=== PATIENT | female | born 1975 | race Caucasian/White ===

== ENCOUNTER 2016-07-17 22:00 | Emergency (ER) | payer MEDICAID ==
--- NOTE | 2016-07-17 22:02 | EDPHY ---
H & P Time Seen by Provider: 07/17/16 22:01 HPI/ROS: CHIEF COMPLAINT: Acute methamphetamine use HISTORY OF PRESENT ILLNESS: 41-year-old female arrives via ambulance after she was found by police acting rationally, noted that she had been using methamphetamine today. History of fibromyalgia, rheumatoid arthritis, chronic opiate dependence Denies suicidal homicidal ideation. PRIMARY CARE PROVIDER: REVIEW OF SYSTEMS: A ten point review of systems was performed and is negative with the exception of the items mentioned in the HPI PAST MEDICAL & SURGICAL HISTORY: Fibromyalgia. Rheumatoid arthritis. SOCIAL HISTORY: Positive methamphetamine use tonight PHYSICAL EXAM (Prior to examination, patient consented to physical exam, hands were washed and my usual and customary physical exam procedures followed) 1) GENERAL: Well-developed, well-nourished, alert and oriented. She appears anxious, she is agitated, she has difficulty sitting still . 2) HEAD: Normocephalic, atraumatic 3) HEENT: Pupils equal, round, reactive to light bilaterally. Sclera anicteric. 4) NECK: Full range of motion, no meningeal signs. 5) LUNGS: Clear auscultation bilaterally, no wheezes, no rhonchi, no retractions. 6) HEART: Regular rate and rhythm, no murmur, no heave, no gallop. 7) ABDOMEN: No guarding, no rebound, no focal tenderness, 8) MUSCULOSKELETAL: No peripheral edema or discoloration. 9) BACK: No CVA tenderness. 10) SKIN: No rash, no petechiae. 11) Psychiatric: Patient is oriented X 3, there is no agitation. DIFFERENTIAL DIAGNOSIS: no particular order including but not limited to acute methamphetamine abuse, acute psychosis, acute exacerbation of chronic pain Smoking Status: Light smoker Constitutional: Initial Vital Signs Temperature (C) 36.6 C 07/17/16 22:08 Heart Rate 101 H 07/17/16 22:08 Respiratory Rate 24 H 07/17/16 22:08 Blood Pressure 112/82 H 07/17/16 22:08 O2 Sat (%) 97 07/17/16 22:08 O2 Delivery Mode Room Air Allergies/Adverse Reactions: BEE STING Allergy (Severe, Uncoded 03/03/15 21:33) Anaphylaxis HAYFEVER, Allergy (Mild, Uncoded 03/03/15 21:33) Other-Enter Comments Home Medications: Medication Instructions Recorded DULoxetine [Cymbalta] 60 mg PO DAILY 03/03/15 Hydrocodone/Acetaminophen 1 each PO Q4-6PRN PRN #20 tablet 03/03/15 [Hydrocodon-Acetaminophen 5-325] Ibuprofen [Motrin (*)] 800 mg PO Q6-8PRN #30 tab 03/03/15 Meloxicam 7.5 mg PO DAILY 03/03/15 Norgestimate-Ethinyl Estradiol 1 each PO DAILY 03/03/15 [Ortho Tri-Cyclen Lo Tablet] Pregabalin [Lyrica] 150 mg PO BID 03/03/15 hydrOXYzine HCL [Vistaril] 50 mg PO 03/03/15 traMADol [Ultram] 50 mg PO PRN 03/03/15 MDM/Departure - MDM Medications Given: Discontinued Medications Lorazepam (Ativan Injection) 2 mg IVP EDNOW ONE Stop: 07/17/16 22:04 Last Admin: 07/17/16 22:24 Dose: 2 mg ED Course/Re-evaluation: 11:30 p.m.: Re-evaluation she is sleeping. Plan will be have police [facility]. - Depart Disposition: Home, Routine, Self-Care Clinical Impression: Methamphetamine abuse Condition: Good Instructions: Methamphetamine Abuse (ED) Additional Instructions: Please stop taking drugs. Referrals: [facility] [Outside] - 1-2 days without fail
[2016-07-17] MEDS ORDERED: LORazepam 2 MG/ML INJ IVP ONE (22:03)
[2016-07-18 01:39] VITALS: RESP 18
[2016-07-18 01:43] VITALS: BP 121/82; PULSE 88; TEMP 98.1; O2SAT 94
== END 2016-07-18 01:59 | disposition home or self-care (01) ==
LOC: EDUNIT#
DX: F15.10 Other stimulant abuse, uncomplicated (principal); F17.200 Nicotine dependence, unspecified, uncomplicated
CPT/HCPCS: 96374

== ENCOUNTER 2016-10-16 10:19 | Emergency (ER) | payer MEDICAID ==
[~2016-10-16 10:19] MED LIST: CEPHALEXIN 500 MG CAP PO SCH; SULFAMETHOX/TMP 800/160 MG 1 TAB PO SCH
[2016-10-16 10:39] VITALS: BP 121/97; PULSE 75; RESP 17; TEMP 98.4; O2SAT 97
[2016-10-16] MEDS ORDERED: SULFAMETHOX/TMP 800/160 MG 1 TAB PO ONE (11:45)
[2016-10-16] MEDS ORDERED: CEPHALEXIN 500 MG CAP PO ONE (11:45)
--- NOTE | 2016-10-16 11:45 | EDPHY ---
H & P Stated Complaint: infected lesion l face x 1 week HPI/ROS: CHIEF COMPLAINT: possible facial infection HISTORY OF PRESENT ILLNESS: Patient complains of 2-3 days history of facial infections. These are areas of excoriation that she has scratched during methamphetamine use. He admits to this and says that these have been steadily worsening since onset. Moderately painful on the right mandibular location. There are several locations on her face of varying degrees of severity are mild- to-moderate. No headache. No eye pain. No redness around the eyes. No nausea or vomiting. No neck pain. No fever or chills. No other associated complaints or modifying factors. REVIEW OF SYSTEMS: Ten systems reviewed and are negative unless otherwise noted in the HPI EXAMINATION General Appearance: Alert, no distress HEENT: Head is normocephalic and atraumatic. No periorbital erythema or cellulitis. There are several areas of excoriation on the face as described below. Cardiovascular: Pulses normal throughout. Brisk cap refill Neurological: A&O, sensory symmetric, strength symmetric Skin: Warm and dry. Multiple areas of excoriation on the face. These are minimally erythematous with exception of the right mandibular lesion. There is mild fluctuance to it. Minimal surrounding erythema. No periorbital cellulitis. No evidence of orbital cellulitis. Extremities: Nontender, no pedal edema Psychiatric: Mood and affect normal DIFFERENTIAL DIAGNOSES: Including but not limited to excoriations, abscess, folliculitis, facial cellulitis MDM: 11:44 a.m. multiple excoriations about the face with 2 areas of likely infection with small abscess in 1 area. I have aspirated the area of fluctuance with minimal return of purulence. Place the patient on Bactrim and Keflex. She will be instructed to follow up at [facility] or to return here for worsening of her symptoms. She is comfortable with this plan. She will be discharged home in stable condition with outpatient follow-up instructions for her methamphetamine abuse. PROCEDURE: Incision and Drainage Consent: Verbal Location: right mandible Length: 1 cm Complexity: simple Anesthesia: local. 1% lidocaine plain, 3 mL Procedure description: area of fluctuance was prepped with chlorhexidine. Anesthesia infused. 18 gauge needle was used to aspirate a small amount of purulence. Tolerated well. No bleeding postprocedure. Expressed: Scant purulence Wound care: routine as discussed Follow-up: 2 days for wound recheck here or at [facility] ED Precautions: Worsening pain. Erythema, edema, cyanosis, pallor, paresthesia or anesthesia. SUPERVISION: This patient was independently evaluated without direct examination by the attending physician. Case was discussed with attending physician. Source: Patient Exam Limitations: No limitations - Personal History LMP (Females 10-55): 1-7 Days Ago Current Tetanus/Diphtheria Vaccine: Yes Tetanus Vaccine Date: within 10 years - Medical/Surgical History Hx Asthma: No Hx Chronic Respiratory Disease: No Hx Diabetes: No Hx Cardiac Disease: No Hx Renal Disease: No Hx Cirrhosis: No Hx Alcoholism: Yes Hx HIV/AIDS: No Hx Splenectomy or Spleen Trauma: No Other PMH: FIBROMYALGIA, ARTHRITIS, DEPRESSION, PTSD, Meth abuse - Social History Smoking Status: Light smoker Constitutional: Initial Vital Signs Temperature (C) 98.4 F 10/16/16 10:36 Heart Rate 75 10/16/16 10:36 Respiratory Rate 17 10/16/16 10:36 Blood Pressure 121/97 H 10/16/16 10:36 O2 Sat (%) 97 10/16/16 10:36 O2 Delivery Mode Room Air Allergies/Adverse Reactions: BEE STING Allergy (Severe, Uncoded 10/16/16 10:35) Anaphylaxis HAYFEVER, Allergy (Mild, Uncoded 10/16/16 10:35) Other-Enter Comments Home Medications: Medication Instructions Recorded DULoxetine [Cymbalta] 60 mg PO DAILY 03/03/15 Hydrocodone/Acetaminophen 1 each PO Q4-6PRN PRN #20 tablet 03/03/15 [Hydrocodon-Acetaminophen 5-325] Ibuprofen [Motrin (*)] 800 mg PO Q6-8PRN #30 tab 03/03/15 Meloxicam 7.5 mg PO DAILY 03/03/15 Norgestimate-Ethinyl Estradiol 1 each PO DAILY 03/03/15 [Ortho Tri-Cyclen Lo Tablet] Pregabalin [Lyrica] 150 mg PO BID 03/03/15 hydrOXYzine HCL [Vistaril] 50 mg PO 03/03/15 traMADol [Ultram] 50 mg PO PRN 03/03/15 Cephalexin [Keflex (*)] 500 mg PO TID #30 cap 10/16/16 Sulfamethox/Tmp 800/160 mg 2 tab PO BID 10 Days 10/16/16 [Bactrim Ds] Medical Decision Making - Data Points Medications Given: Discontinued Medications Cephalexin HCl (Keflex) 500 mg PO EDNOW ONE PRN Reason: Protocol Stop: 10/16/16 11:46 Last Admin: 10/16/16 11:56 Dose: 500 mg Trimethoprim/Sulfamethoxazole (Bactrim Ds) 2 ea PO EDNOW ONE PRN Reason: Protocol Stop: 10/16/16 11:46 Last Admin: 10/16/16 11:56 Dose: 2 ea Departure - Departure Disposition: Home, Routine, Self-Care Clinical Impression: Facial abscess, Excoriation Condition: Good Instructions: Methamphetamine Abuse (ED), Abscess (ED) Additional Instructions: Take the medications as discussed. Follow up with [facility] ([phone] ). Return here for worsening symptoms or redness about the face. Please follow-up with [facility]) at [phone] for help with your addiction. Referrals: [facility] [Other] - As per Instructions Prescriptions: Cephalexin [Keflex (*)] 500 mg PO TID #30 cap Sulfamethox/Tmp 800/160 mg [Bactrim Ds] 2 tab PO BID 10 Days
== END 2016-10-16 12:41 | disposition home or self-care (01) ==
PROC: 0H91XZZ Drainage of Face Skin, External Approach (ICD-10-PCS; principal; 2016-10-16)
DX: L98.1 Factitial dermatitis (principal); L02.01 Cutaneous abscess of face; F17.200 Nicotine dependence, unspecified, uncomplicated

== ENCOUNTER 2017-06-06 21:12 | Emergency (ER) | payer MEDICAID ==
--- NOTE | 2017-06-06 21:19 | EDPHY ---
H & P Source: Patient Exam Limitations: No limitations - Personal History Tetanus Vaccine Date: within 10 years - Medical/Surgical History Hx Asthma: No Hx Chronic Respiratory Disease: No Hx Diabetes: No Hx Cardiac Disease: No Hx Renal Disease: No Hx Cirrhosis: No Hx Alcoholism: Yes Hx HIV/AIDS: No Hx Splenectomy or Spleen Trauma: No Other PMH: FIBROMYALGIA, ARTHRITIS, DEPRESSION, PTSD, Meth abuse - Social History Smoking Status: Light smoker Time Seen by Provider: 06/06/17 21:19 HPI/ROS: HPI: This is a 42-year-old female who presents with Chief Complaint: M1 hold Location: psych Quality: M1 hold Duration: since 1949 Signs and Symptoms: No suicidal ideation, no homicidal ideation,+ paranoid, + hearing voices, + visual hallucinations, + insomnia x3 days Timing: Acute on chronic Severity: Moderate to severe Context: Patient's mother called 911 to report patient was hearing voices and talking to people that were not present. Patient's mother reports that the patient is a meth user and also has been diagnosed with schizophrenia. Patient mother believes that she is a danger to herself and is unable to care for herself. Patient reports that she was incarcerated for 2 months and released in February. Since that time, she has been homeless living at shelters down [place]. She admits to using meth for the last 3 days via intravenous drug use. Last use was yesterday afternoon/evening. She has been staying at her mother' s house for the last several weeks due to the cold temperatures. She admitted to her mother today that she was using meth. Her mother called 911 placed M1 hold on her. Patient denies any prior diagnosis of schizophrenia. She does admit to a diagnosis depression, anxiety, PTSD, fibromyalgia. She reports that she has not had her Lyrica in 2 days. History of bilateral tubal ligation. Modifying Factors: None Comment: ROS: see HPI Constitutional: No fever, no chills, no weight loss Eyes: No blurred vision Respiratory: No shortness of breath, no cough Cardiovascular: No chest pain Gastrointestinal: No nausea, no vomiting, no diarrhea Genitourinary: No dysuria Extremities: No myalgias Neurologic: No weakness, no numbness Skin: No rashes Hematologic: No bruising, no bleeding MEDICAL/SURGICAL/SOCIAL HISTORY: Medical history: Fibromyalgia. PTSD Surgical history: Breast surgery, bilateral tubal ligation Social history: Homeless CONSTITUTIONAL: Untidy, irritable, adult white female, awake and alert, no obvious distress HEENT: Atraumatic and normocephalic, PERRL, EOMI. Tympanic membranes clear. Oropharynx clear, poor dentition, no exudate and moist pink mucosa. Airway patent. No lymphadenopathy. No meningismus. Cardiovascular: Normal S1/S2, regular rate, regular rhythm, without murmur rub or gallop. PULMONARY/CHEST: Symmetrical and nontender. Clear to auscultation bilaterally. Good air movement. No accessory muscle usage. ABDOMEN: Soft, nondistended, nontender, no rebound, no guarding, no peritoneal signs, no masses or organomegaly. No CVAT. EXTREMITIES: 2/2 pulses, strength 5/5, no deformities, no clubbing, no cyanosis or edema. NEUROLOGICAL: no focal neuro deficits. GCS 15. SKIN: Warm and dry, scarring and different nodules in various stages noted on her face, no erythema. no rash. Good capillary refill. PSYCH: Poor eye contact, + flight of ideas, tangential disorganized thought process, poor insight and judgment, + auditory and visual command hallucinations , no suicidal ideation with a plan, now homicidal ideation, paranoid (Armando,Terra) Constitutional: Initial Vital Signs Temperature (C) 36.8 C 06/06/17 21:27 Heart Rate 78 06/06/17 21:27 Respiratory Rate 16 06/06/17 21:27 Blood Pressure 143/74 H 06/06/17 21:27 O2 Sat (%) 94 06/06/17 21:27 O2 Delivery Mode Room Air Allergies/Adverse Reactions: BEE STING Allergy (Severe, Uncoded 06/06/17 21:32) Anaphylaxis HAYFEVER, Allergy (Mild, Uncoded 06/06/17 21:32) Other-Enter Comments Home Medications: Medication Instructions Recorded DULoxetine [Cymbalta] 60 mg PO DAILY 03/03/15 Hydrocodone/Acetaminophen 1 each PO Q4-6PRN PRN #20 tablet 03/03/15 [Hydrocodon-Acetaminophen 5-325] Ibuprofen [Motrin (*)] 800 mg PO Q6-8PRN #30 tab 03/03/15 Meloxicam 7.5 mg PO DAILY 03/03/15 Norgestimate-Ethinyl Estradiol 1 each PO DAILY 03/03/15 [Ortho Tri-Cyclen Lo Tablet] Pregabalin [Lyrica] 150 mg PO BID 03/03/15 hydrOXYzine HCL [Vistaril] 50 mg PO 03/03/15 traMADol [Ultram] 50 mg PO PRN 03/03/15 Cephalexin [Keflex (*)] 500 mg PO TID #30 cap 10/16/16 Sulfamethox/Tmp 800/160 mg 2 tab PO BID 10 Days tab 10/16/16 [Bactrim Ds] Medical Decision Making ED Course/Re-evaluation: 1950: M1 hold placed by [facility] police. I agree with this. Patient reports that her last methamphetamine use was yesterday but her behavior is very bizarre, manic. She admits to auditory and visual hallucinations. Currently patient is calm and cooperative. No interventions are required at this time. 2210: Labs and UDS reviewed; positive for amphetamines and marijuana. 0005: Nursing requested home medications be ordered. Celebrex, Lyrica, Vistaril, Cymbalta ordered. 0010: End of shift. Signed over to Dr. Harrison. meth clear in AM. Pending mental health evaluation and final disposition. (Karly Roberts) Differential Diagnosis: Differential diagnosis includes but is not limited to intoxication, depression, schizoaffective disorder, suicidal ideation, psychosis, delirium. (Karly Roberts) Other Provider: 00:35 care assumed by me from FERN Roberts pending sober evaluation. 0700 patient signed out to Dr. Ybarra pending sober evaluation. No issues during my care this patient overnight. (Bhavin Harrison) No issues over my shift. At 1325, mental health has completed their evaluation and recommends discharge home. They feel she is low risk, not actively suicidal and have asked me to terminate the M1 hold. (Celio Ybarra) - Data Points Laboratory Results: Laboratory Results 06/06/17 21:24 06/06/17 21:24 Medications Given: Celecoxib (Celebrex) 100 mg PO BID RANDY Stop: 12/04/17 00:14 Last Admin: 06/07/17 09:00 Dose: 100 mg Duloxetine HCl (Cymbalta) 60 mg PO DAILY RANDY Stop: 12/04/17 09:14 Last Admin: 06/07/17 10:15 Dose: 60 mg Pregabalin (Lyrica) 75 mg PO BID RANDY Stop: 12/04/17 00:14 Last Admin: 06/07/17 09:01 Dose: 75 mg Discontinued Medications Duloxetine HCl (Cymbalta) 60 mg PO ONCE ONE Stop: 06/07/17 00:04 Last Admin: 06/07/17 00:29 Dose: Not Given Hydroxyzine HCl (Hydroxyzine Hcl) 50 mg PO ONCE ONE Stop: 06/07/17 00:05 Last Admin: 06/07/17 00:28 Dose: 50 mg Departure - Departure Disposition: Home, Routine, Self-Care Clinical Impression: Methamphetamine use, IVDU (intravenous drug user), Delirium, Hallucinations Condition: Good Instructions: Polysubstance Abuse (ED) Additional Instructions: Follow-up with your mental health provider as directed. Return to the ED for thoughts of self-harm, racing thoughts or other concerns. Referrals: NONE *PRIMARY CARE P,. [Primary Care Provider] - As per Instructions
[2017-06-06 21:44] LABS: % IMMATURE GRANULYOCYTES 0.3 % (0.0-1.1); ABSOLUTE IMMATURE GRANULOCYTES 0.04 10^3/uL (0.00-0.10); ADD DIFF? NO; ADD MORPH? NO; ADD SCAN? NO; ATYPICAL LYMPHOCYTE FLAG 10 (0-99); FRAGMENT RBC FLAG 20 (0-99); HEMATOCRIT 40.4 % (38.0-47.0); HEMOGLOBIN 14.1 g/dL (12.6-16.3); LEFT SHIFT FLG 0 (0-99); LIPEMIA HEMOLYSIS FLAG 90 (0-99); MEAN CELL HEMOGLOBIN 31.9 pg (27.9-34.1); MEAN CELL HEMOGLOBIN CONCENTR. 34.9 g/dL (32.4-36.7); MEAN CELL VOLUME 91.4 fL (81.5-99.8); MEAN PLATELET VOLUME 9.6 fL (8.7-11.7); PLATELET CLUMPS FLAG 0 (0-99); PLATELET COUNT 302 10^3/uL (150-400); RED BLOOD CELL COUNT 4.42 10^6/uL (4.18-5.33); RED CELL DISTRIBUTION WIDTH 13.2 % (11.5-15.2)
[2017-06-06 21:47] LABS: ANION GAP 10 mEq/L (8-16); CALCIUM 9.1 mg/dL (8.5-10.4); CARBON DIOXIDE 26 mEq/l (22-31); CHLORIDE 105 mEq/L (97-110); CREATININE 0.7 mg/dL (0.6-1.0); ETHANOL SERUM 21 mg/dL (0-10); GLOMERULAR FILTRATION RATE > 60; GLUCOSE 92 mg/dL (70-100); POTASSIUM 3.6 mEq/L (3.5-5.2); SALICYLATE < 1.0 mg/dL (2.0-20.0); SODIUM 141 mEq/L (134-144)
[2017-06-07] MEDS ORDERED: DULoxetine 60 MG CAP PO ONE (00:03)
[2017-06-07] MEDS ORDERED: hydrOXYzine HCL 50 MG TAB PO ONE (00:04)
[2017-06-07] MEDS: PREGABALIN 75 MG CAP PO SCH ×2 (00:27→09:01)
[2017-06-07] MEDS ORDERED: DULoxetine 60 MG CAP PO SCH (09:15)
[2017-06-07 14:20] VITALS: BP 113/79; PULSE 84; RESP 18; TEMP 97.9; O2SAT 95
== END 2017-06-07 14:20 | disposition home or self-care (01) ==
DX: F15.90 Other stimulant use, unspecified, uncomplicated (principal); F19.90 Other psychoactive substance use, unspecified, uncomplicated; R41.0 Disorientation, unspecified; R44.0 Auditory hallucinations; R44.1 Visual hallucinations; F17.200 Nicotine dependence, unspecified, uncomplicated
CPT/HCPCS: 80305; G0480

== ENCOUNTER 2017-07-26 15:39 | Emergency (ER) | payer MEDICAID ==
[2017-07-26 16:37] VITALS: TEMP 98.1
--- NOTE | 2017-07-26 18:17 | EDPHY ---
H & P Stated Complaint: MITRA hand swelling Time Seen by Provider: 07/26/17 18:07 HPI/ROS: CHIEF COMPLAINT: Right hand swelling HISTORY OF PRESENT ILLNESS: The patient is a 42 y/o female with chronic pain and active methamphetamine abuse complaining of right hand swelling worsening over the past 2 days. She thinks she was bit by something in her right hand 2 weeks ago and admits to crystal meth injection in her other arm, but adamantly denies shooting any IV drugs into her right arm or hand. She says "for 2 days I ran around outside thinking people were following me" after using meth. She spent the last 2 nights outside because of this and says her hands became very cold because she didn't have gloves on. Today she's had swelling and redness of both hands, mainly the right hand. She denies fever, chills, vomiting, diarrhea, or other acute symptoms. REVIEW OF SYSTEMS: Constitutional: No fever, no chills Eyes: No visual changes ENT: No sore throat Respiratory: No cough, no shortness of breath Cardiac: No chest pain Gastrointestinal: no vomiting, no abdominal pain Genitourinary: no dysuria Skin: see HPI Neurological: No headache, no weakness Psychiatric: depression - Personal History LMP (Females 10-55): Over 28 Days Ago Current Tetanus/Diphtheria Vaccine: Yes Current Tetanus Diphtheria and Acellular Pertussis (TDAP): Yes Tetanus Vaccine Date: within 10 years - Medical/Surgical History Hx Asthma: No Hx Chronic Respiratory Disease: No Hx Diabetes: No Hx Cardiac Disease: No Hx Renal Disease: No Hx Cirrhosis: No Hx Alcoholism: Yes Hx HIV/AIDS: No Hx Splenectomy or Spleen Trauma: No Other PMH: FIBROMYALGIA, ARTHRITIS, DEPRESSION, PTSD, Meth abuse - Social History Smoking Status: Current every day smoker - Physical Exam Exam: General Appearance: Alert, well-apearing Eyes: Pupils equal and round, no conjunctival pallor or injection ENT, Mouth: multiple scabbed over areas on face, Mucous membranes moist Neck: Normal inspection Respiratory: Lungs are clear to auscultation Cardiovascular: Regular rate and rhythm Gastrointestinal: Abdomen is soft and non-tender Neurological: A&O, nonfocal, normal gait Skin: Warm and dry Extremities: Right hand: diffuse mild erythema, warm, not tender, ROM of fingers without pain, no fluctuance or evidence of abscess. Left hand has slight swelling, somewhat red on the dorsal aspect, nontender Psychiatric: Mood and affect normal Constitutional: Initial Vital Signs Temperature (C) 36.7 C 07/26/17 16:34 Heart Rate 84 07/26/17 16:34 Respiratory Rate 16 07/26/17 16:34 Blood Pressure 114/76 07/26/17 16:34 O2 Sat (%) 94 07/26/17 16:34 O2 Delivery Mode Room Air Allergies/Adverse Reactions: BEE STING Allergy (Severe, Uncoded 07/26/17 16:32) Anaphylaxis HAYFEVER, Allergy (Mild, Uncoded 07/26/17 16:32) Other-Enter Comments Home Medications: Medication Instructions Recorded DULoxetine [Cymbalta] 60 mg PO DAILY 03/03/15 Meloxicam 7.5 mg PO DAILY 03/03/15 Pregabalin [Lyrica] 150 mg PO BID 03/03/15 Cephalexin [Keflex (*)] 500 mg PO QID #40 cap 07/26/17 Medical Decision Making - Diagnostics Imaging Results: Hand Xray: NAD, no FB Imaging: I viewed and interpreted images myself ED Course/Re-evaluation: This is a 42 y/o female who actively using IV crystal methamphetamine and presents with a 2-day history of right hand swelling after spending the last 2 nights outside. She denies recent drug injection into her right arm or hand. On exam, she has diffuse mild erythema and swelling of her right hand without evidence of abscess. I suspect this is most likely frostbite due to bilateral sx and no hand tenderness, but will also treat for cellulitis due to IV drug use. IV established. 1gm IV Ancef administered. Right hand x-ray shows soft tissue swelling, no fracture or foreign body. Reassessed patient and discussed imaging results. She understands she needs to follow up with her PCP in 24 hours for reevaluation. She will be discharged with a script for Keflex and instructions to use Tylenol/ibuprofen for pain. She 's also been referred to [facility] if she wishes to seek help detoxing from meth. Return precautions discussed. She is comfortable with this plan. Differential Diagnosis: includes though not limited to cellulitis, frostbite, retained FB, abscess, osteomyelitis, neurovasc compromise - Data Points Laboratory Results: Laboratory Results 07/26/17 17:35 Medications Given: Discontinued Medications Cefazolin Sodium/Dextrose (Ancef 1 Gm (Premix)) 50 mls @ 200 mls/hr IV EDNOW ONE PRN Reason: Protocol Stop: 07/26/17 18:29 Last Admin: 07/26/17 18:46 Dose: 50 mls Departure - Departure Disposition: Home, Routine, Self-Care Clinical Impression: Cellulitis Qualifiers: Site of cellulitis: extremity Site of cellulitis of extremity: upper extremity Laterality: right Qualified Code(s): L03.113 - Cellulitis of right upper limb Frostbite Qualifiers: Encounter type: initial encounter Qualified Code(s): T33.90XA - Superficial frostbite of unspecified sites, initial encounter Condition: Good Instructions: Cellulitis (ED), Frostbite (ED), Methamphetamine Abuse (ED) Additional Instructions: 1. Take Keflex as prescribed for possible cellulitis. 2. Follow up with [facility] within 24 hours for reevaluation of your hand. 3. Use Tylenol and ibuprofen as directed for pain for the next few days. 4. Follow up with [facility] if you want help detoxing from methamphetamine. 5. Return to the ED for worsening of condition. Adult Pain & Fever Control: We recommend Acetaminophen (Tylenol) and Ibuprofen (Motrin,Advil) for pain and fever control. When fever is high or pain severe, both drugs can be used at the same time, but at different intervals. Please note the time differences. Your dose is: Acetaminophen 650mg every 4 to 6 hours Ibuprofen 600mg every 6-8 hours with food Note: do not take Acetaminophen with Hydrocodone (Vicodin, Lortab) or Oxycodone (Percocet). These medications also contain Acetaminophen. No more than 3000mg of Acetaminophen should be taken in 24 hours (for an adult). Referrals: [facility],. [Clinic] - As per Instructions [facility] 24 Hours [Outside] - As per Instructions Prescriptions: Cephalexin [Keflex (*)] 500 mg PO QID #40 cap Report Scribed for: Joelle Arambula Report Scribed by: Zohreh Little Date of Report: 07/26/17 Time of Report: 18:41 Physician Review and Approval Statement: 07/26/17 18:41 Portions of this note were transcribed by a medical engineer. I personally performed a history, physical exam, medical decision making, and confirmed accuracy of information the transcribed note.
[2017-07-26 18:44] LABS: PLATELET COUNT 270 10^3/uL (150-400)
[2017-07-26 19:29] VITALS: BP 122/70; PULSE 72; RESP 16; O2SAT 94
== END 2017-07-26 19:29 | disposition home or self-care (01) ==
DX: L03.113 Cellulitis of right upper limb (principal); T33.521A Superficial frostbite of right hand, initial encounter; F17.200 Nicotine dependence, unspecified, uncomplicated; X31.XXXA Exposure to excessive natural cold, initial encounter
CPT/HCPCS: 96374; J0690

== ENCOUNTER 2018-08-13 08:35 | Emergency (ER) | payer MEDICAID ==
[2018-08-13] MEDS ORDERED: NS 1,000 ML IV ONE ×2 (08:41→10:07)
[2018-08-13] MEDS ORDERED: ONDANSETRON 4 MG/2 ML VIAL IVP ONE (08:41)
[2018-08-13] MEDS ORDERED: IPRATROPIUM/ALBUTEROL 3 ML DEYVIAL IH ONE (09:11)
--- NOTE | 2018-08-13 09:11 | EDPHY ---
H & P Time Seen by Provider: 08/13/18 08:38 HPI/ROS: Chief complaint. Vomiting HPI. 43-year-old female here by EMS with 1 episode of emesis yesterday and then vomiting and dry heaving this morning. No diarrhea. Denies abdominal pain. No chest pain or shortness of breath. No travel or known exposure to Infectious Disease. Slight cough. Suboxone and alcohol last night. She had flu last week. ROS 10 systems were reviewed and negative with the exception of the elements mentioned in the history of present illness Past Medical/Surgical History: Fibromyalgia, arthritis, depression, PTSD, methamphetamine use Social History: Homeless, daily smoker, alcohol last night Smoking Status: Current every day smoker Physical Exam: General Appearance: Alert well-developed female actively vomiting vital signs are stable though initial O2 saturation 88% on room air Eyes: Pupils equal and round no pallor or injection. ENT, Mouth: Mucous membranes are moist. Respiratory: There are no retractions, lungs are clear to auscultation. Cardiovascular: Regular rate and rhythm. Gastrointestinal: Abdomen is soft and nontender, no masses, bowel sounds normal. Neurological: Awake and alert, sensory and motor exams grossly normal. Skin: Warm and dry, no rashes. Musculoskeletal: Neck is supple nontender. Extremities symmetrical, full range of motion. Psychiatric: Patient is oriented X 3, there is no agitation. Constitutional: Initial Vital Signs Temperature (C) 36.6 C 08/13/18 08:44 Heart Rate 95 08/13/18 08:44 Respiratory Rate 18 08/13/18 08:44 Blood Pressure 125/66 H 08/13/18 08:44 O2 Sat (%) 88 L 08/13/18 08:44 O2 Delivery Mode Nasal Cannula O2 (L/minute) 2 Allergies/Adverse Reactions: BEE STING Allergy (Severe, Uncoded 07/26/17 16:32) Anaphylaxis HAYFEVER, Allergy (Mild, Uncoded 07/26/17 16:32) Other-Enter Comments Home Medications: Medication Instructions Recorded DULoxetine [Cymbalta] 60 mg PO DAILY 03/03/15 Meloxicam 7.5 mg PO DAILY 03/03/15 Pregabalin [Lyrica] 150 mg PO BID 03/03/15 Cephalexin [Keflex (*)] 500 mg PO QID #40 cap 07/26/17 Ondansetron Odt [Zofran Odt] 4 mg PO Q4PRN PRN #4 tab 08/13/18 Medical Decision Making - Diagnostics Imaging Results: Imaging Impressions Chest X-Ray 08/13/18 09:11 Impression: Mild perihilar bronchitis, without a focal infiltrate. Procedures: IV normal saline, Zofran ED Course/Re-evaluation: Re-evaluation 10:05 a.m.. Patient is stable and feeling better. After 1 L still no urge to urinate Re-evaluation 1:15 p.m.. No vomiting or diarrhea. Stable. Patient and I discussed laboratory evaluation, treatment plan including criteria for return importance of follow-up further evaluation. She expresses understanding and agreement Differential Diagnosis: This appears to be gastroenteritis. No evidence for acute abdomen as she has no abdominal pain. - Data Points Laboratory Results: Laboratory Results 08/13/18 09:05 08/13/18 09:05 08/13/18 08/13/18 09:05 09:05 WBC 15.47 10^3/uL H 10^3/uL (3.80-9.50) RBC 5.09 10^6/uL 10^6/uL (4.18-5.33) Hgb 15.6 g/dL g/dL (12.6-16.3) Hct 45.6 % % (38.0-47.0) MCV 89.6 fL fL (81.5-99.8) MCH 30.6 pg pg (27.9-34.1) MCHC 34.2 g/dL g/dL (32.4-36.7) RDW 13.8 % % (11.5-15.2) Plt Count 284 10^3/uL 10^3/uL (150-400) MPV 9.8 fL fL (8.7-11.7) Neut % (Auto) 86.1 % H % (39.3-74.2) Lymph % (Auto) 6.9 % L % (15.0-45.0) [place] % (Auto) 5.1 % % (4.5-13.0) Eos % (Auto) 1.3 % % (0.6-7.6) Baso % (Auto) 0.3 % % (0.3-1.7) Nucleat RBC Rel Count 0.0 % % (0.0-0.2) Absolute Neuts (auto) 13.34 10^3/uL H 10^3/uL (1.70-6.50) Absolute Lymphs (auto) 1.06 10^3/uL 10^3/uL (1.00-3.00) Absolute Monos (auto) 0.79 10^3/uL 10^3/uL (0.30-0.80) Absolute Eos (auto) 0.20 10^3/uL 10^3/uL (0.03-0.40) Absolute Basos (auto) 0.04 10^3/uL 10^3/uL (0.02-0.10) Absolute Nucleated RBC 0.00 10^3/uL 10^3/uL (0-0.01) Immature Gran % 0.3 % % (0.0-1.1) Immature Gran # 0.04 10^3/uL 10^3/uL (0.00-0.10) Sodium 138 mEq/L mEq/L (135-145) Potassium 3.8 mEq/L mEq/L (3.5-5.2) Chloride 108 mEq/L mEq/L (97-110) Carbon Dioxide 24 mEq/l mEq/l (22-31) Anion Gap 6 mEq/L mEq/L (6-14) BUN 28 mg/dL H mg/dL (7-23) Creatinine 0.8 mg/dL mg/dL (0.6-1.0) Estimated GFR > 60 Glucose 96 mg/dL mg/dL (70-100) Calcium 8.8 mg/dL mg/dL (8.5-10.4) Lipase 128 IU/L IU/L (23-300) Medications Given: Discontinued Medications Albuterol/Ipratropium (Duoneb) 3 ml IH EDNOW ONE Stop: 08/13/18 09:12 Last Admin: 08/13/18 09:35 Dose: 3 ml Sodium Chloride (Ns) 1,000 mls @ 0 mls/hr IV EDNOW ONE; Wide Open PRN Reason: Protocol Stop: 08/13/18 08:42 Last Admin: 08/13/18 09:03 Dose: 1,000 mls Sodium Chloride (Ns) 1,000 mls @ 0 mls/hr IV EDNOW ONE; Wide Open PRN Reason: Protocol Stop: 08/13/18 10:08 Last Admin: 08/13/18 10:24 Dose: 1,000 mls Ondansetron HCl (Zofran) 4 mg IVP EDNOW ONE Stop: 08/13/18 08:42 Last Admin: 08/13/18 09:04 Dose: 4 mg Departure - Departure Disposition: Home, Routine, Self-Care Clinical Impression: Vomiting Qualifiers: Vomiting type: unspecified Vomiting Intractability: non-intractable Nausea presence: with nausea Qualified Code(s): R11.2 - Nausea with vomiting, unspecified Condition: Good Instructions: Acute Nausea and Vomiting (ED) Additional Instructions: Frequent, small sips fluids. Gradual diet advancement Zofran 1 pill every 4 hr as needed for nausea vomiting Return for worsening symptoms Recheck in 1 day if not improved Referrals: Patient,NotPresent [Unknown] - As per Instructions [facility] [Outside] - 1 day, if not improved Prescriptions: Ondansetron Odt [Zofran Odt] 4 mg PO Q4PRN PRN #4 tab PRN Reason: Nausea/Vomiting, Use 1st
[2018-08-13 09:22] LABS: PLATELET COUNT 284 10^3/uL (150-400)
[2018-08-13] MEDS ORDERED: ONDANSETRON 4MG PREPACK#2 BTL TAKEHOME ONE (13:20)
[2018-08-13 13:40] VITALS: BP 106/56
== END 2018-08-13 13:40 | disposition home or self-care (01) ==
LOC: EDUNIT#
DX: R11.2 Nausea with vomiting, unspecified (principal); J40 Bronchitis, not specified as acute or chronic; M79.7 Fibromyalgia; F15.10 Other stimulant abuse, uncomplicated; Z59.0 Homelessness
CPT/HCPCS: 96374; J2405

== ENCOUNTER 2018-09-13 13:49 | Emergency (ER) | payer MEDICAID ==
[2018-09-13] MEDS ORDERED: NS 1,000 ML IV ONE (14:42)
[2018-09-13 14:55] LABS: PLATELET COUNT 263 10^3/uL (150-400)
--- NOTE | 2018-09-13 16:02 | EDPHY ---
H & P Stated Complaint: CI Time Seen by Provider: 09/13/18 14:27 HPI/ROS: CHIEF COMPLAINT: Confused, chemically impaired HISTORY OF PRESENT ILLNESS: 43-year-old female presents emergency department with history being confused. Patient evidently wandered into a yarsani in the [facility] and was brought by a sales account associate there to the [facility] for concerns that she was intoxicated. The [facility] referred her to the emergency department for concerns regarding polysubstance use. Patient herself states that she is confused. She reports drinking alcohol last night using methamphetamine. Unclear if she has had any head trauma. The patient lives in [facility] but evidently has no home currently. She denies any fevers or chills, denies chest pain or shortness of breath. Denies any palpitations, vomiting, or diarrhea. Denies headache or lightheadedness REVIEW OF SYSTEMS: Unobtainable secondary to patient's confusion PAST MEDICAL HISTORY: Our records indicate history of alcohol, methamphetamine abuse, PTSD, anxiety, fibromyalgia SOCIAL HISTORY: Homeless, smoker, positive alcohol use. Positive methamphetamine use. VITAL SIGNS Reviewed by me. GENERAL: Disheveled, slurred speech, oriented to person and place, thinks it is 1995. HEENT: Atraumatic. Eyes: No icterus, no injection. Mouth: Dry mucous membranes. No erythema or lesions. Neck: supple with no adenopathy. Nontender to palpation. LUNGS: Clear to auscultation bilaterally, no wheezes, rhonchi or rales. CARDIAC: Regular rate and rhythm, no rubs, murmurs or gallops. ABDOMEN: Soft, nontender, nondistended, bowel sounds normal. BACK: No CVA tenderness. EXTREMITIES: No trauma. No edema. Range of motion is normal throughout. Needle track on the left upper extremity. NEURO: Somewhat somnolent, oriented x2, moving all extremities x4. SKIN: Warm and dry, no rash. PSYCHIATRIC: Normal mentation, no agitation. - Personal History LMP (Females 10-55): Over 28 Days Ago Tetanus Vaccine Date: within 10 years - Medical/Surgical History Hx Asthma: No Hx Chronic Respiratory Disease: No Hx Diabetes: No Hx Cardiac Disease: No Hx Renal Disease: No Hx Cirrhosis: No Hx Alcoholism: Yes Hx HIV/AIDS: No Hx Splenectomy or Spleen Trauma: No Other PMH: FIBROMYALGIA, ARTHRITIS, DEPRESSION, PTSD, Meth abuse - Social History Smoking Status: Current every day smoker Constitutional: Initial Vital Signs Temperature (C) 37.2 C 09/13/18 14:07 O2 Delivery Mode Room Air Allergies/Adverse Reactions: BEE STING Allergy (Severe, Uncoded 07/26/17 16:32) Anaphylaxis HAYFEVER, Allergy (Mild, Uncoded 07/26/17 16:32) Other-Enter Comments Home Medications: Medication Instructions Recorded DULoxetine [Cymbalta] 60 mg PO DAILY 03/03/15 Meloxicam 7.5 mg PO DAILY 03/03/15 Pregabalin [Lyrica] 150 mg PO BID 03/03/15 Cephalexin [Keflex (*)] 500 mg PO QID #40 cap 07/26/17 Ondansetron Odt [Zofran Odt] 4 mg PO Q4PRN PRN #4 tab 08/13/18 Medical Decision Making - Diagnostics EKG Interpretation: 12-LEAD EKG: Please see the full report in [facility]. My interpretation: Sinus rhythm, T-wave inversions in the precordium Imaging Results: Imaging Impressions Chest X-Ray 09/13/18 14:42 Impression: Normal chest. Head CT 09/13/18 14:42 Impression: Nothing acute. Possible early periventricular white matter disease in the periventricular deep white matter. Findings and recommendations discussed with Dr. Bhavani Isaacs at 4:00 p.m. on September 13, 2018. Final report concurs with initial preliminary interpretation. Imaging: Discussed imaging studies w/ cheese grader Radiologist, I viewed and interpreted images myself ED Course/Re-evaluation: 43-year-old female presents emergency department with confusion. Patient does relate a history of heavy alcohol use last night as well as methamphetamines. Evaluation for altered mental status: EKG demonstrates T-wave inversions the precordium, patient has no chest pain or shortness of breath. Bedside troponin is 0.00. Head CT is negative for any acute processes. Laboratory evaluation largely unremarkable. Patient did receive a L of normal saline. Patient unable to provide a urine sample, when she was taken to the bathroom she did urinate and then flushed the urine down the toilet On re-evaluation, the patient reports feeling better. She is no longer confused. She states that she is homeless. She was evaluated by the drug abuse social worker and a bus token was given for the patient to go to the prison. I believe no further evaluation is needed at this time in the emergency department. She continues to deny fevers, chest pain, shortness of breath, nausea, vomiting. Chest x-ray is clear. No cardiomegaly or signs of heart failure. No pneumonia. Differential Diagnosis: After the history was obtained and physical exam performed, the following differential for the patient's altered mental status was considered included but was not limited to hypoglycemia, electrolyte disturbances, intraccranial hemorrhage, tumor, drug or alcohol intoxication, stroke, or TIA. - Data Points Laboratory Results: Laboratory Results 09/13/18 14:40 09/13/18 14:40 09/13/18 09/13/18 09/13/18 15:04 14:40 14:40 WBC RBC Hgb Hct MCV MCH MCHC RDW Plt Count MPV Neut % (Auto) Lymph % (Auto) [place] % (Auto) Eos % (Auto) Baso % (Auto) Nucleat RBC Rel Count Absolute Neuts (auto) Absolute Lymphs (auto) Absolute Monos (auto) Absolute Eos (auto) Absolute Basos (auto) Absolute Nucleated RBC Immature Gran % Immature Gran # Sodium 139 mEq/L mEq/L (135-145) Potassium 3.6 mEq/L mEq/L (3.5-5.2) Chloride 106 mEq/L mEq/L (97-110) Carbon Dioxide 25 mEq/l mEq/l (22-31) Anion Gap 8 mEq/L mEq/L (6-14) BUN 32 mg/dL H mg/dL (7-23) Creatinine 0.8 mg/dL mg/dL (0.6-1.0) Estimated GFR > 60 Glucose 108 mg/dL H mg/dL (70-100) Calcium 9.1 mg/dL mg/dL (8.5-10.4) POC Troponin I 0.01 ng/mL ng/mL (0.00-0.08) Beta HCG, Qual NEGATIVE Ethyl Alcohol < 10 mg/dL mg/dL (0-10) 09/13/18 14:40 WBC 10.19 10^3/uL H 10^3/uL (3.80-9.50) RBC 4.77 10^6/uL 10^6/uL (4.18-5.33) Hgb 14.8 g/dL g/dL (12.6-16.3) Hct 41.5 % % (38.0-47.0) MCV 87.0 fL fL (81.5-99.8) MCH 31.0 pg pg (27.9-34.1) MCHC 35.7 g/dL g/dL (32.4-36.7) RDW 13.2 % % (11.5-15.2) Plt Count 263 10^3/uL 10^3/uL (150-400) MPV 9.8 fL fL (8.7-11.7) Neut % (Auto) 69.6 % % (39.3-74.2) Lymph % (Auto) 20.1 % % (15.0-45.0) [place] % (Auto) 9.1 % % (4.5-13.0) Eos % (Auto) 0.5 % L % (0.6-7.6) Baso % (Auto) 0.5 % % (0.3-1.7) Nucleat RBC Rel Count 0.0 % % (0.0-0.2) Absolute Neuts (auto) 7.09 10^3/uL H 10^3/uL (1.70-6.50) Absolute Lymphs (auto) 2.05 10^3/uL 10^3/uL (1.00-3.00) Absolute Monos (auto) 0.93 10^3/uL H 10^3/uL (0.30-0.80) Absolute Eos (auto) 0.05 10^3/uL 10^3/uL (0.03-0.40) Absolute Basos (auto) 0.05 10^3/uL 10^3/uL (0.02-0.10) Absolute Nucleated RBC 0.00 10^3/uL 10^3/uL (0-0.01) Immature Gran % 0.2 % % (0.0-1.1) Immature Gran # 0.02 10^3/uL 10^3/uL (0.00-0.10) Sodium Potassium Chloride Carbon Dioxide Anion Gap BUN Creatinine Estimated GFR Glucose Calcium POC Troponin I Beta HCG, Qual Ethyl Alcohol Medications Given: Discontinued Medications Sodium Chloride (Ns) 1,000 mls @ 0 mls/hr IV ONCE ONE; Wide Open PRN Reason: Protocol Stop: 09/13/18 14:43 Last Admin: 09/13/18 14:54 Dose: 1,000 mls Point of Care Test Results: Chemistry 09/13/18 15:04 POC Troponin I 0.01 ng/mL ng/mL (0.00-0.08) Departure - Departure Disposition: Home, Routine, Self-Care Clinical Impression: Polysubstance abuse Condition: Good Instructions: Polysubstance Abuse (ED), Altered Mental Status (ED) Additional Instructions: Please drink plenty of fluid. Get plenty of rest. Do not abuse alcohol, marijuana, or methamphetamines. Referrals: JESSY MINAYA [Primary Care Provider] - As per Instructions
--- NOTE | 2018-09-13 16:46 | ASMTCMCOM ---
CM Note CM Note Notes: Request for assistance made by Dr. Isaacs. Pt was brought in to [facility] by a torts law professor of a [employer]ist in [place]. The pt. walked into the [employer] and was disoriented and unable to stand. Pt has a history of homelessness and polysubstance use. The client was difficult to arouse and could not hold a conversation. She managed to provide a phone number [phone] for her mother "Evy". The call was unanswered and a very basic VM was left. Outreach was also made to the pt's Next of Kin, her daughter Mandy ([phone]). The phone went to [email or web address] no message was left. Pt stated she has been through the coordinated entry. DC plan is for client to go to [facility], taxi voucher provided. Date Signed: 09/13/2018 04:45 PM Electronically Signed By:Marisela Blanco LCSW
[2018-09-13 17:02] VITALS: BP 133/89
--- NOTE | 2018-09-13 17:06 | CPEKG ---
Test Reason : OPEN Blood Pressure : / mmHG Vent. Rate : 091 BPM Atrial Rate : 091 BPM P-R Int : 157 ms QRS Dur : 103 ms QT Int : 404 ms P-R-T Axes : 076 103 062 degrees QTc Int : 498 ms Sinus rhythm Right axis deviation Abnormal T, consider ischemia, anterior leads Confirmed by Bhavani Isaacs ([id number]) on 09/13/2018 5:05:48 PM Referred By: Bhavani Isaacs Confirmed By:Bhavani Isaacs
--- NOTE | 2018-09-19 08:49 | CPEKG ---
Test Reason : OPEN Blood Pressure : / mmHG Vent. Rate : 094 BPM Atrial Rate : 094 BPM P-R Int : 162 ms QRS Dur : 105 ms QT Int : 399 ms P-R-T Axes : 074 102 057 degrees QTc Int : 500 ms Sinus rhythm Probable left atrial enlargement Right axis deviation Nonspecific T abnormalities, anterior leads Borderline prolonged QT interval Similar to prior (QT prolongation is new) Confirmed by Daniel Swift ([id number]) on 09/19/2018 8:48:30 AM Referred By: Bhavani Isaacs Confirmed By:Daniel Swift
== END 2018-09-13 17:01 | disposition home or self-care (01) ==
DX: R41.0 Disorientation, unspecified (principal); F15.921 Other stimulant use, unspecified with intoxication delirium; F10.10 Alcohol abuse, uncomplicated; F43.10 Post-traumatic stress disorder, unspecified; E86.9 Volume depletion, unspecified; Z59.0 Homelessness
CPT/HCPCS: 84484-ER; G0480